=== PATIENT | female | born 1990 | race Caucasian/White ===

== ENCOUNTER 2025-09-12 12:04 | Outpatient (CLI) | payer OTHER, SELFPAY ==
[2025-09-12 13:18] LABS: Beta HCG Quantitative 216.53 mIU/ML
--- OUTSIDE RECORDS SUMMARY | 2025-09-12 14:52 | XMS_ITS | Encounter Summary ---
Author Organization [facility] Address [address] [place] [address] Care Team Providers Care Director Internal Communications Name Role Phone Lyubov Norman MUD TRUCKER Primary Care Provider [phone] Encounter Details Date Type Department Care Team (Late st Contact Info) Description 07/15/2025 Results Follow-Up [facility] [place] [address] [place] [address] Lyubov Norman MUD TRUCKER [address] [place] [address] IMAGE GENERIC Social History Tobacco Use Types Packs/Day Years Used Date Smoking Tobacco: Former Cigarettes Q uit: 09/16/2022 Passive Smoke Exposure: Past Smokeless Tobacco: Never Passive Exposure Comments:so cial, minimal Alcohol Use Standard Drinks/Week Comments Yes 0 (1 standard drink = 0.6 oz pur e alcohol) Occasionally PHQ-2 Answer Date Recorded Patient Health Questionnaire-2 Score 0 09/16/2024 Comments No Sex and Gender Information Value Date Recorded Sex Assigned at Female 04/12/2025 1:51 PM CDT Legal Sex Female 1:45 PM CDT Gender Identity Female 04/12/2025 1:51 PM CDT Sexual Orientation Not on file documented as of this encounter Plan of Treatment Upcoming Encounters Date Type Department Care Team (Late st Contact Info) Description 09/21/2025 8:00 AM CDT [facility] [place] [address] [place] [address] Lyubov Norman, MUD TRUCKER [address] [place] [address] documented as of this encounter Visit Diagnoses Not on filedocumented in this encounter Care Teams Director Internal Communications Relationship Specialty Start Date End Date Lyubov Norman MUD TRUCKER [address] [place] [address] PCP - General NURSE PRACTITIONER 09/14/24 documented as of this encounter
--- OUTSIDE RECORDS SUMMARY | 2025-09-12 14:52 | XMS_ITS | Encounter Summary ---
Author Organization [facility] Address [address] [place] [address] Care Team Providers Care Professional Nurse Name Role Phone Lyubov Norman SOFTWARE QUALITY MANAGER Primary Care Provider [phone] Encounter Details Date Type Department Care Team (Late st Contact Info) Description 07/04/2025 [place] [employer] Exchange[employer] Message Enc [facility] - [place] [address] [place] [address] Lyubov Norman, SOFTWARE QUALITY MANAGER [address] [place], [place] [id number] Chest x-ray Social History Tobacco Use Types Packs/Day Years [...] on file documented as of this encounter Progress Notes * Brooklyn Crawley MA - 07/06/2025 12:26 PM CDT I called [facility] and they are like all hospitals around they are short on radiologist but she will keepand eye out for it and call when it is in. documented in this encounter Plan of Treatment Upcoming Encounters Date Type Department Care Team (Late st Contact Info) Description 09/21/2025 8:00 AM CDT Office Visit [facility] - [place] [address] [place] [address] Lyubov Norman NP [address] [place] [address] documented as of this encounter Visit Diagnoses Not on filedocumented in this encounter Care Teams Professional Nurse Relationship Specialty Start Date End Date Lyubov Norman NP [address] [place] [address] PCP - General NURSE PRACTITIONER 09/14/24 documented as of this encounter
--- OUTSIDE RECORDS SUMMARY | 2025-09-12 14:52 | XMS_ITS | Clinical Summary ---
Author Organization [facility] Address [facility] [place] [address] Care Team Providers Care Work Environment Safety Inspector Name Role Phone EsterLyubov metzger [place] COMPACTING MACHINE OPERATOR/TENDER Primary Care Provider [phone] Allergies Active Allergy Reactions Criticality Noted Date Comments Iodine Unknown 03/29/2025 Medications azelastine 0.1 % nasal sprayIndications :Acute non-recurrent maxillary sinusitis 2 sprays by Nasal route 2 (two) times daily as needed for Rhinitis. 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 10.7 g 2 5 08/21/20 25 Discontinu ed(Reorder ) Active Problems Problem Noted Date Diagnosed Date Mild intermittent reactive a irway disease with status asthmaticus 07/03/2025 Encounters Date Type Department Care Team Description 08/21/[address] [facility] [place] [address] [facility] [address] [place] [address] Mayela Florian MA 07/26/2025 Telephone [place] [address] [place] [address] [address] [address] [place] [address] Lyubov Norman, COMPACTING MACHINE OPERATOR/TENDER Medication Information 07/21/2025 Telephone [place] [address] [place] [address] [address] [place] [address] Lyubov Norman, COMPACTING MACHINE OPERATOR/TENDER Medication 07/20/2025 MyChart Message Enc [place] [address] [place] [address] [address] [place] [address] Lyubov Norman, COMPACTING MACHINE OPERATOR/TENDER The inhaler 07/15/2025 Results Follow-Up [place] [address] [place] [address] [address] [address] [place] [address] Lyubov Norman, OLINDA IMAGE GENERIC 07/04/2025 Scan Dexmo SRVCS Scanned, Doc [facility] Image (SCAN) 07/04/2025 MyChart Message Enc [place] [address] [place] [address] [address] [address] [place] [address] Lyubov Norman, COMPACTING MACHINE OPERATOR/TENDER Chest x-ray 07/03/2025 3:40 PM CDT Office Visit [place] [address] [place] [address] [address] [place] [address] Lyubov Norman, COMPACTING MACHINE OPERATOR/TENDER Sinus Problem 07/03/2025 Travel from Last 3 Months Immunizations Immunization Administration Dates Next Due Dtp (Generic) 07/09/1994 Fluzone (IIV3, Trivalent, 0. 5 ML Prefilled Syringe) 09/16/2024 HPV4 (Gardasil) 12/21/2008,03/20/2008,01/03/2008 MMR (MMRII) 07/09/1994 Polio Opv (Generic) 07/09/1994 Tdap (Adacel) 09/16/2024 Family History Medical History Relation Comments Tongue cancer Father smoker Heart Attack Maternal Grandfather Cancer Paternal Grandfather Cancer Paternal Grandmother Ovarian Cancer Sister Relation Status Comments Father Alive Maternal Grandfather Paternal Grandfather Paternal Grandmother Sister Alive Social History Tobacco Use Types Packs/Day Years Used Date Smoking Tobacco: Former Cigarettes Q uit: 09/16/2022 Passive Smoke Exposure: Past Smokeless Tobacco: Never Tobacco Cessation:Counseling Given: No Passive Exposure Comments:social, minimal Alcohol Use Standard Drinks/Week Comments Yes 0 (1 standard drink = 0.6 oz pur e alcohol) Occasionally PHQ-2 Answer Date Recorded Patient Health Questionnaire-2 Score 0 09/16/2024 Comments No Sex and Gender Information Value Date Recorded Sex Assigned at Female 04/12/2025 1:51 PM CDT Legal Sex Female 1:45 PM CDT Gender Identity Female 04/12/2025 1:51 PM CDT Sexual Orientation Not on file Last Filed Vital Signs Vital Sign Reading Time Taken Comments Blood Pressure 126/92 07/03/2025 3:45 PM CDT Pulse 112 07/03/2025 3:45 PM CDT Temperature 37.4 C (99.4 F) 07/03/2025 3:45 PM CDT Respiratory Rate 16 07/03/2025 3:45 PM CDT Oxygen Saturation 99% 07/03/2025 3:45 PM CDT Inhaled Oxygen Concentration - - Weight 66.8 kg (147 lb 3.2 oz) 07/03/2025 3:45 P M CDT Height 158.8 cm (5' 2.5) 07/03/2025 3:45 PM CDT Body Mass Index 26.49 07/03/2025 3:45 PM CDT Plan of Treatment Upcoming Encounters Date Type Department Care Team (Late st Contact Info) Description 09/21/2025 8:00 AM CDT Office Visit [facility] - [place] [address] [place] [address] Lyubov Norman, OLINDA [address] [facility] [address] [place] [address] Health Maintenance Due Date Last Done Comments Cervical Cancer Screening Pa p Smear (Age 30 to 64) Every 3 Years 1989 Hepatitis B Vaccines (1 of 3 - 19+ 3-dose series) 02/18/2008 Pneumococcal Vaccine: Pediatrics (0 to 5 Years) and At-Risk Patients (6 to 49 Years) (1 of 2 - PCV) 02/18/2008 Cervical Cancer Screening Pa p with HPV Testing (Age 30 to 64) Every 5 Years 2019 Cervical Cancer Screening wi th HPV 2019 PHQ-2 (Physician [place]) 11/23/2024 09/16/2024 COVID-19 Vaccine (3 - 2024-2 6 season) 2025 06/14/2021, 05/24/2021 Influenza Adult (#1) 2025 09/16/2024 Annual Physical 09/16/2025 09/16/2024 DTaP, Tdap and Td Vaccines ( 3 - Td or Tdap) 09/16/2034 09/16/2024, 07/09/1994 HPV Vaccines Completed 12/21/2008, 03/20/2008, 01/03/2008 Hepatitis C Completed 09/16/2024 Hepatitis A Vaccines Aged Out No long er eligible based on patient's age to complete this topic Meningococcal B Vaccine Aged Out No l onger eligible based on patient's age to complete this topic Meningococcal Vaccine Aged Out No carole dang eligible based on patient's age to complete this topic RSV Immunizations Under 20 Months Aged Out No longer eligible b ased on patient's age to complete this topic Procedures Procedure Name Priority Date/Time Associated Diagnosis Comments IMAGE GENERIC 07/04/2025 HEPATITIS C ANTIBODY Routine 09/16/2024 3:30 PM CDT Need for hepatitis C screening test from Last 3 Months or Most Recently Relevant to Health Maintenance Results * IMAGE GENERIC (07/04/2025) Anatomical Region Laterality Modality Other 07/04/2025 [facility] Scanned SCANNING Final Resu lt * HEPATITIS C ANTIBODY (09/16/2024 3:30 PM CDT) HEPATITIS C AB NON-REACTI VE NON-REACT THELMA 09/16/2024 9:58 PM CDT [facility] Comment: ANTIBODIES TO HCV NOT DETECTED. DOES NOT EXCLUDE THE POSSIBILITY OF EXPOSURE TO HCV. 09/16/2024 3:30 PM CDT Lyubov Norman NP LABORATORY Final Resul t [facility] [address] [place] [address], [id number] from Last 3 Months or Most Recently Relevant to Health Maintenance Insurance [facility] Care Teams Work Environment Safety Inspector Relationship Specialty Start Date End Date Lyubov Norman NP [address] [place] [address] PCP - General NURSE PRACTITIONER 09/14/24
== END 2025-09-12 12:05 | disposition home or self-care (01) ==
LOC: ANHLAB 12:08
PROVIDERS: Visit Provider Nurse Practitioner Obstetrics & Gynecology
DX: O09.299 Supervision of pregnancy with other poor reproductive or obstetric history, unspecified trimester (principal); Z3A.00 Weeks of gestation of pregnancy not specified
CPT/HCPCS: 36415; 84144; 84702

== ENCOUNTER 2025-09-14 10:12 | Outpatient (CLI) | payer OTHER, SELFPAY ==
--- OUTSIDE RECORDS SUMMARY | 2025-09-14 11:09 | XMS_ITS | Encounter Summary ---
Author Organization [facility] Address [address] [place] [address] Care Team Providers Care Shuttle Spotter Name Role Phone Lyubov Norman PILOT MANAGER Primary Care Provider [phone] Encounter Details Date Type Department Care Team (Late st Contact Info) Description 07/04/2025 [place] Snackshart Message Enc [facility] Multispecialty Care - [place] [address] [place] [address] Lyubov Norman, PILOT MANAGER [address] [place], [place] [id number] Chest x-ray Social History Tobacco Use Types [...] - 07/06/2025 12:26 PM CDT I called [facility] and they are like all hospitals around they are short on radiologist but she will keepand eye out for it and call when it is in. documented in this encounter Plan of Treatment Upcoming Encounters Date Type Department Care Team (Late st Contact Info) Description 09/21/2025 8:00 AM CDT Office Visit [facility] Multispecialty Care - [place] [address] [place] [address] Lyubov Norman NP [address] [place] [address] documented as of this encounter Visit Diagnoses Not on filedocumented in this encounter Care Teams Shuttle Spotter Relationship Specialty Start Date End Date Lyubov Norman NP [address] [place] [address] PCP - General NURSE PRACTITIONER 09/14/24 documented as of this encounter
--- OUTSIDE RECORDS SUMMARY | 2025-09-14 11:09 | XMS_ITS | Encounter Summary ---
Author Organization [facility] Address [address] [place] [address] Care Team Providers Care Electronic Resources Librarian Name Role Phone Lyubov Norman PATTERNMAKER PLASTER Primary Care Provider [phone] Encounter Details Date Type Department Care Team (Late st Contact Info) Description 07/15/2025 Results Follow-Up [facility] - [place] [address] [place] [address] Lyubov Norman PATTERNMAKER PLASTER [address] [place] [address] IMAGE GENERIC Social History Tobacco Use Types [...] Description 09/21/2025 8:00 AM CDT [facility] [place] [address] [place] [address] Lyubov Norman, PATTERNMAKER PLASTER [address] [place] [address] documented as of this encounter Visit Diagnoses Not on filedocumented in this encounter Care Teams Electronic Resources Librarian Relationship Specialty Start Date End Date Lyubov Norman PATTERNMAKER PLASTER [address] [place] [address] PCP - General NURSE PRACTITIONER 09/14/24 documented as of this encounter
--- OUTSIDE RECORDS SUMMARY | 2025-09-14 11:09 | XMS_ITS | Clinical Summary ---
Author Organization [facility] Address [facility] [place] [address] Care Team Providers Care Sales Development Associate Name Role Phone EsterLyubov metzger [place] WARP TESTER Primary Care Provider [phone] Allergies Active Allergy Reactions Criticality Noted Date [...] Department Care Team Description 08/21/2025 Orders Only [facility] [place] [address] [facility] [address] [place] [address] Mayela Florian MA 07/26/2025 Telephone [place] [address] [place] [address] [address] [address] [place] [address] Lyubov Norman, WARP TESTER Medication Information 07/21/2025 Telephone [place] [address] [place] [address] [address] [place] [address] Lyubov Norman, WARP TESTER Medication 07/20/2025 MyChart Message Enc [place] [address] [place] [address] [address] [place] [address] Lyubov Norman, WARP TESTER The inhaler 07/15/2025 Results Follow-Up [place] [address] [place] [address] [address] [place] [address] Lyubov Norman, OLINDA IMAGE GENERIC 07/04/2025 Scan Pi-Cardia SRVCS Scanned, Doc [facility] Group Image (SCAN) 07/04/2025 MyChart Message Enc [place] [address] [place] [address] [address] [place] [address] Lyubov Norman, WARP TESTER Chest x-ray 07/03/2025 3:40 PM CDT Office Visit [place] [address] [place] [address] [address] [place] [address] Lyubov Norman, WARP TESTER Sinus Problem 07/03/2025 Travel from Last 3 [...] Description 09/21/2025 8:00 AM CDT Office Visit [facility] Mult[facility] - [place] [address] [place] [address] Lyubov Norman, OLINDA [address] [facility] [address] [place] [address] Health Maintenance Due Date Last Done Comments [...] Screening wi th HPV 2019 PHQ-2 (Physician [place]) 11/23/2024 09/16/2024 COVID-19 Vaccine (3 - 2024-2 [...] VE NON-REACT THELMA 09/16/2024 9:58 PM CDT [facility] Comment: ANTIBODIES TO HCV NOT DETECTED. DOES NOT EXCLUDE THE POSSIBILITY OF EXPOSURE TO HCV. 09/16/2024 3:30 PM CDT Lyubov Norman NP LABORATORY Final Resul t [facility] [address] [place] [address], [id number] from Last 3 Months or Most Recently Relevant to Health Maintenance Insurance [facility] Care Teams Sales Development Associate Relationship Specialty Start Date End Date Lyubov Norman NP [address] [place] [address] PCP - General NURSE PRACTITIONER 09/14/24
[2025-09-14 11:23] LABS: Beta HCG Quantitative 541.82 mIU/ML
== END 2025-09-14 10:13 | disposition home or self-care (01) ==
LOC: ANHLAB 10:13
PROVIDERS: Visit Provider Nurse Practitioner Obstetrics & Gynecology
DX: O09.299 Supervision of pregnancy with other poor reproductive or obstetric history, unspecified trimester (principal); Z3A.00 Weeks of gestation of pregnancy not specified
CPT/HCPCS: 36415; 84702